=== PATIENT | male | born 1960 | race Caucasian/White ===

== ENCOUNTER 2020-10-23 12:00 | Outpatient (RCR) | payer BC, SELFPAY ==
[2020-10-23] MEDS: COVID-19 VACC, MRNA(PFIZER)/PF 30 MCG/0.3 ML SYRINGE IM (17:04)
[2020-11-13] MEDS: COVID-19 VACC, MRNA(PFIZER)/PF 30 MCG/0.3 ML SYRINGE IM (16:58)
== END 2021-01-19 23:59 ==
LOC: IMMUN 12:00
PROVIDERS: Visit Provider Family Medicine
DX: Z23 Encounter for immunization (principal)
CPT/HCPCS: 0001A; 0002A; 91300